=== PATIENT | male | born 1975 ===

== ENCOUNTER 2023-10-18 20:37 | Emergency (ER) | payer SELFPAY ==
[~2023-10-18] VITALS: Ht 162.6 cm; Wt 90.7 kg
[2023-10-18 21:11] VITALS: BP 122/88; O2SAT 97
== END 2023-10-18 21:11 | disposition home or self-care (01) ==
LOC: ER 20:37
DX: Z00.00 Encounter for general adult medical examination without abnormal findings (principal); F17.210 Nicotine dependence, cigarettes, uncomplicated; Z71.6 Tobacco abuse counseling
CPT/HCPCS: A4606; A4663